=== PATIENT | female | born 1980 | race Two or more races ===

== ENCOUNTER 2023-04-09 16:58 | Emergency (ER) | payer OTHER ==
[~2023-04-09] VITALS: Ht 162.6 cm; Wt 72.6 kg
[2023-04-09] MEDS ORDERED: LEXAPRO5 MG PO (17:15)
[2023-04-09] MEDS ORDERED: PROTONIX40 M1 PO (17:16)
[2023-04-09] MEDS ORDERED: PAXLOVID 300-11 EACH PO (19:50)
== END 2023-04-09 20:17 | disposition home or self-care (01) ==
LOC: ER 16:58
DX: U07.1 COVID-19 (principal); R53.81 Other malaise